=== PATIENT | female | born 1950 | race Caucasian/White ===

== ENCOUNTER → 2017-06-22 | Outpatient (CLI) | payer MEDICARE, OTHER | LOC: GMAL 10:57 | PROVIDERS: ATTEND Family Medicine | DX: D51.3 Other dietary vitamin B12 deficiency anemia (principal); E55.9 Vitamin D deficiency, unspecified; R53.83 Other fatigue ==

== ENCOUNTER → 2017-11-16 | Outpatient (CLI) | payer MEDICARE, OTHER | LOC: GMAL 11:21 | PROVIDERS: ATTEND Family Medicine | DX: D51.3 Other dietary vitamin B12 deficiency anemia (principal); E55.9 Vitamin D deficiency, unspecified ==

== ENCOUNTER → 2018-04-08 | Outpatient (CLI) | payer MEDICARE, OTHER ==
--- NOTE | 2018-04-08 17:12 | CT ---
EXAM DESCRIPTION: Upper Extremity: Computed Tomography. CLINICAL HISTORY: 67 years Female RIGHT ELBOW PAIN COMPARISON: Radiographs of the right elbow 03/27/2018. TECHNIQUE: Spiral, axial 1.25 mm scans through the right without contrast. Axial 0.6 x 1.2 mm reconstructions with bone algorithm. Coronal and sagittal 3.0 mm reconstructions. Total Exam DLP: 622.11 mGy-cm. This exam was performed according to our departmental CT dose-optimization program which includes automated exposure control, adjustment of the mA and/or kV according to patient size and/or use of iterative reconstruction technique; to reduce radiation dose to as low as reasonably achievable (ALARA). FINDINGS: Marginal spurs are seen on the radial capitellar joint and the ulnotrochlear joint with minimal narrowing of the ulnotrochlear joint, medial aspect.. No radiodense loose bodies in the joint spaces. Spur on the coronoid process of the ulna. No radiodense loose body in the olecranon fossa. Small enthesophyte at the triceps tendon insertion on the olecranon. Enthesophytes on the lateral epicondyle of the humerus. Effusion in the olecranon fossa. No fracture is noted. IMPRESSION: 1. 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 2. Effusion in the olecranon fossa. No fracture. No radiodense loose bodies. 3. Marginal spurs and enthesophytes as noted. Electronically signed by: Juan Diego Trinidad MD 04/08/2018 5:09 PM INSURANCE CHECKER
== END ==
LOC: MRI 11:01
PROVIDERS: ATTEND Family Medicine
DX: M13.821 Other specified arthritis, right elbow (principal); M25.721 Osteophyte, right elbow; M25.421 Effusion, right elbow

== ENCOUNTER → 2019-05-28 | Outpatient (CLI) | payer MEDICARE, OTHER | LOC: GMAL 11:36 | PROVIDERS: ATTEND Family Medicine | DX: D51.3 Other dietary vitamin B12 deficiency anemia (principal); R53.83 Other fatigue; E55.9 Vitamin D deficiency, unspecified; I10 Essential (primary) hypertension; R73.9 Hyperglycemia, unspecified ==

== ENCOUNTER → 2019-11-19 | Outpatient (CLI) | payer MEDICARE, OTHER | LOC: GMAL 16:56 | PROVIDERS: ATTEND Family Medicine | DX: I10 Essential (primary) hypertension (principal); E53.8 Deficiency of other specified B group vitamins; E55.9 Vitamin D deficiency, unspecified; Z79.899 Other long term (current) drug therapy ==

== ENCOUNTER → 2019-11-25 | Outpatient (CLI) | payer MEDICARE, OTHER | LOC: GMAL 11:11 | PROVIDERS: ATTEND Family Medicine | DX: D51.3 Other dietary vitamin B12 deficiency anemia (principal); E55.9 Vitamin D deficiency, unspecified; I10 Essential (primary) hypertension; Z79.899 Other long term (current) drug therapy ==